=== PATIENT | male | born 1995 | race Caucasian/White ===

== ENCOUNTER 2016-07-18 09:23 | Emergency (ER) | payer BC, OTHER ==
--- NOTE | 2016-07-18 10:29 | EDM.PDOC ---
ED HPI GENERAL MEDICAL PROBLEM - General Chief Complaint: ENT Problem Stated Complaint: FEVER,SORE THROAT Time Seen by Provider: 07/18/16 09:25 Source of Information: Reports: Patient, Family, RN, RN Notes Reviewed History Limitations: Reports: No Limitations - History of Present Illness INITIAL COMMENTS - FREE TEXT/NARRATIVE: Patient presents the emergency room at [facility] complaining of a sore throat that started approximately 3 days ago. The patient states that he has been exposed to strep throat. The patient states his fevers at home have been ranging anywhere from 101-103. The patient has taken Advil and Tylenol with some relief of the fever. The sore throat has persisted the patient denies any eye or ear symptomatology. The patient states he is trying to stay well hydrated with good by mouth fluid intake. The patient states she's had a dry nonproductive cough. The patient denies any headaches patient denies any shortness of breath no focal neurological deficits. The patient denies any skin rash. Onset Date: 07/15/16 Duration: Constant Quality: Reports: Burning - Related Data Home Meds: Home Meds Amoxicillin [Amoxil] 875 mg PO Q12HR #20 tablet 07/18/16 [Rx] ED ROS ENT - Review of Systems Review Of Systems: See Below Constitutional: Reports: Fever, Decreased Appetite. Denies: Chills, Weakness HEENT: Reports: Throat Pain, Throat Swelling. Denies: Ear Pain, Eye Discharge, Rhinitis, Sinus Problem Respiratory: Reports: Cough. Denies: Shortness of Breath, Sputum Cardiovascular: Denies: Chest Pain, Palpitations Skin: Reports: No Symptoms Neurological: Reports: No Symptoms. Denies: Dizziness, Headache ED EXAM, ENT - Physical Exam Exam: See Below Exam Limited By: No Limitations General Appearance: Alert, No Apparent Distress Eye Exam: Bilateral Eye: EOMI, Normal Inspection, PERRL Ears: Normal External Exam, Normal Canal, Normal TMs Nose: Clear Rhinorrhea Mouth/Throat: Dry Mucous Membrane, Pharyngeal Erythema, Throat Swelling, Other ( Pharyngeal exudate bilateral) Neck: Supple Respiratory/Chest: No Respiratory Distress, Lungs Clear, Normal Breath Sounds Cardiovascular: Regular Rate, Rhythm Neurological: Alert, Oriented Skin: Warm, Dry, Intact, Normal Color, No Rash Course - Orders/Labs/Meds Orders: Active Orders 24 hr Category Date Time Status CULTURE STREP A CONFIRMATION [RM] Stat Lab 07/18/16 10:15 Results STREP SCRN A RAPID W CULT CONF [] Stat Lab 07/18/16 10:15 Results Departure - Departure Time of Disposition: 10:41 Disposition: Home, Self-Care 01 Condition: good Clinical Impression: Exudative pharyngitis Fever Qualifiers: Fever type: unspecified Qualified Code(s): R50.9 - Fever, unspecified - Discharge Information Prescriptions: Amoxicillin [Amoxil] 875 mg PO Q12HR #20 tablet Instructions: Pharyngitis Referrals: PCP,None [Primary Care Provider] - Forms: ED Department Discharge Additional Instructions: 1. Stay well hydrated and rest 2. Change out and buy a new toothbrush 3. Do not share any drinking bottles or utensils 4. Cover your cough 5. Take medication for the full coarse, even if you are feeling better 6. See your Primary as symptoms warrant 7. May alternate Tylenol/Advil as needed - Problem List Review Problem List Initiated/Reviewed/Updated: Yes - My Orders Last 24 Hours: My Active Orders 07/18/16 10:15 CULTURE STREP A CONFIRMATION [] Stat STREP SCRN A RAPID W CULT CONF [] Stat - Assessment/Plan Last 24 Hours: My Active Orders 07/18/16 10:15 CULTURE STREP A CONFIRMATION [] Stat STREP SCRN A RAPID W CULT CONF [] Stat
[2016-07-18 13:12] VITALS: BP 125/66
== END 2016-07-18 11:00 | disposition home or self-care (01) ==
LOC: VM.ED 09:23
DX: J02.9 Acute pharyngitis, unspecified (principal)
CPT/HCPCS: 87081; 87880; 99283

== ENCOUNTER 2021-09-30 21:41 | Emergency (ER) | payer OTHER ==
[2021-09-30] MEDS ORDERED: Tetracaine HCl/PF 0.5% 4 ML Bottle EYERT ONE (22:26)
[2021-09-30] MEDS ORDERED: Fluorescein 1 MG Ophth Strip EYERT ONE (22:27)
[2021-09-30] MEDS ORDERED: Take Home: Gentamicin 0.3% Ophth Soln 5 ML, 1 Bottle Pack EYEBOTH ONE (22:40)
[2021-10-01 00:28] VITALS: BP 142/87; PULSE 82
== END 2021-09-30 22:50 | disposition home or self-care (01) ==
LOC: VM.ED 21:41
DX: T15.91XA Foreign body on external eye, part unspecified, right eye, initial encounter (principal); Z88.0 Allergy status to penicillin
CPT/HCPCS: 99283; A9270-GY